=== PATIENT | female | born 1955 | race Caucasian/White ===

== ENCOUNTER → 2017-07-17 | Outpatient (CLI) | payer BC ==
[~2017-07-17] MED LIST: AMOX-559 PO; ASPI-1471 PO; CALC-901 PO; CYCL-277 PO; ESTR-35 PO; HYDR-4309 PO; KET10 PO; MELO-205 PO; MOXOD OD; MULT-1335 PO; OMEG300C PO; OMEP-137 PO; THYR60TA25 PO; Tumeric Curcumin PO; VITA150T2 PO; [UNRECOGNIZED DRUG - OTHER] PO
--- NOTE | 2017-07-17 15:08 | RT STRESS TEST REPORT ---
FACILITY: [facility] PATIENT NAME: KING LEGER : [id number] MR: [id number] V: [id number] EXAM DATE: ORDERING PHYSICIAN: OG SWANN TECHNOLOGIST: Som Acquisition Time: 2017-07-17 14:23:28 Total Exercise Time: 00:12:00 Test Indications: Syncope Medications: BLOOD PRESSURE Protocol: SHREYAS 2 Max HR: 151 BPM 96% of Pred: 157 BPM Max BP: 188/087 mmHG Max Work Load: 13.4 METS NSR, no ST-T abnormalities No ST-T changes suggestive of ischemia seen with stress Rare PACs See seperate report for Stress echo interpretation. Confirmed by ROBERTA SCHILLING ([id number]) on 07/17/2017 3:06:07 PM Referred By: Overread By: ROBERTA SCHILLING
--- NOTE | 2017-07-18 14:49 | RADIOLOGY IMAGING REPORT ---
FACILITY: [facility] PATIENT NAME: KING LEGER : [id number] MR: [id number] V: [id number] EXAM DATE: [id number] ORDERING PHYSICIAN: OG SWANN TECHNOLOGIST: Kvng Armas PROCEDURE: STRESS ECHOCARDIOGRAPHY COMPARISON: None. INDICATIONS: CHEST PAIN RESTING ECG: Normal sinus rhythm, no ST or T wave abnormalities. STRESS ECG: No ST or T wave changes suggestion of ischemia. ARRHYTHMIAS: Rare PAC's. STRESS PORTION OF TEST: Patient exercised with Earl protocol for 12 min achieving 13.4 mets. Had a resting heartrate of 80 BPM with a maximum heartrate of 151 BPM representing 96% of age predicted max heartrate. Resting blood pressure 151/99, maximum blood pressure 188/87. No reports of chest pain during the test. RESTING ECHOCARDIOGRAM: Ejection fraction looks to be 55% with no focal wall motion abnormalities. There is no significant valvular dysfunction noted either. STRESS ECHO: Normal augmentation of all christensen with exertion, estimated EF >70% with exercise. CONCLUSION: 1. Normal resting & stress ECG with only rare PAC's. 2. Excellent functional capacity reaching 12 min of exercise with Earl protocol. 3. Normal stress echo with normal resting wall motion & normal augmentation with stress. 4. Based on results of the test overall patient is low risk (<1%) for annual cardiovascular event. Dictated by: Vaughn Perdomo M.D. on 07/17/2017 at 15:30 Transcribed by: ARIEL on 07/18/2017 at 6:55 Approved by: Vaughn Perdomo M.D. on 07/18/2017 at 14:48 [facility]
== END ==
LOC: RAD 02:14
PROVIDERS: ATTEND Family Medicine
DX: I10 Essential (primary) hypertension (principal); R07.9 Chest pain, unspecified; R06.02 Shortness of breath
CPT/HCPCS: 93017; 93325; 93350